=== PATIENT | male | born 1990 | race African-American/Black ===

== ENCOUNTER 2018-02-12 04:59 | Emergency (ER) | payer SELFPAY ==
[2018-02-12] MEDS ORDERED: Morphine 4 MG/ML VIAL ONE (05:59)
[2018-02-12] MEDS ORDERED: Ondansetron PF 4 MG/2 ML Vial ONE (05:59)
[2018-02-12 06:09] LABS: Hemoglobin 15.4 g/dL (14.0-18.0); Mean Corpuscular HGB CONC 33.4 g/dL (32.0-36.0); Mean Corpuscular Volume 92.7 fL (78.0-98.0); Mean Platelet Volume 8.3 fL (7.4-10.4); Platelet Count 248 thou/uL (130-400); Red Blood Cell (RBC) Count 4.98 mill/uL (4.70-6.10); White Blood Cell (WBC) Count 16.4 thou/uL (4.8-10.8)
[2018-02-12 06:26] LABS: ALT (SGPT) 20 U/L (8-55); AST (SGOT) 24 U/L (5-34); Alkaline Phosphatase 90 U/L (40-150); Anion Gap 16 mmol/L (10-20); BUN (Urea Nitrogen) 20 mg/dL (8.9-20.6); Bilirubin, Total 0.7 mg/dL (0.2-1.2); CK (CPK) 266 U/L (30-200); Calc. Creatinine Clearance 0 mL/min (70-130); Calcium 10.4 mg/dL (7.8-10.44); Carbon Dioxide 23 mmol/L (22-29); Chloride 101 mmol/L (98-107); Estimated GFR-MDRD Greater than 90; Globulin 3.8 g/dL (2.4-3.5); Glucose 107 mg/dL (70-105); Lipase 59 U/L (8-78); Magnesium 2.1 mg/dL (1.6-2.6); Potassium 3.8 mmol/L (3.5-5.1); Protein, Total 8.8 g/dL (6.0-8.3); Sodium 136 mmol/L (136-145)
[2018-02-12 06:34] LABS: Band 4 % (5-11); Lymphocytes 8 % (21-51); MDiff Complete? YES; Monocytes 4 % (0-10); Neutrophil 84 % (42-75)
[2018-02-12 06:50] LABS: Bilirubin Moderate (Negative); Blood, Urine Large (Negative); Clarity CLOUDY (Clear); Glucose, Urine (Dipstick) Negative (Negative); Leukocyte Small (Negative); Nitrite Negative (Negative); Protein, Urine (Dipstick) 300 mg/dL (Neg-Trace); Specific Gravity, Urine 1.044 (1.002-1.036); Urobilinogen 0.2 mg/dL (0.2-1.0)
[2018-02-12 06:53] LABS: Bacteria/HPF None Seen HPF (None Seen); Pathc Cast-AUWi Flag 0.64 (0-2.49); RBC/HPF GREATER THAN 50-TNTC HPF (0-3)
[2018-02-12 07:04] LABS: Renal Epithelial 0-3 HPF (0-3); Transitional Epithelial 0-3 HPF (0-3)
[2018-02-12 07:05] LABS: Hyaline Casts/LPF 0-3 HYALINE CAST LPF (0-3 Hyaline)
[2018-02-12] MEDS ORDERED: cefTRIAXone\\ROCEPHIN 250 MG VIAL ONE (07:31)
--- NOTE | 2018-02-12 08:55 | CT ---
PRELIMINARY REPORT/[facility]/EMERGENTY AFTER-HOURS PROCEDURE CT Abdomen and Pelvis Without Contrast EXAM DATE/TIME: 02/12/2018 5:57 AM CLINICAL HISTORY: 27 years old, male; Pain; Abdominal pain; Flank; Other: Non specific; Patient HX: M27 presents to ed for abdominal pain. Pt's family reports last night PT drank alcohol at their family manas and rep orts he later started getting sick. Pt's family reports abdominal pain and reports dark discolored ur ine. PT reports subjective fever. PT reports a little diarrhea a few days ago and again last night TECHNIQUE: Axial computed tomography images of the abdomen and pelvis without contrast. Coronal reformatted images were created and reviewed. COMPARISON: No relevant prior studies available. FINDINGS: Lower thorax: The lung bases are clear. ABDOMEN: Liver: Unremarkable. Gallbladder and bile ducts: No visible gallstones by CT. Ultrasound could be more sensitive for detec ting gallstones, if clinically needed. No biliary tree dilation. Pancreas: Unremarkable. Spleen: Unremarkable. Adrenals: Unremarkable. Kidneys and ureters: No hydronephrosis of either kidney. No visible renal or ureteral calculus. No pe rinephric fluid. Stomach and bowel: There are no CT findings to strongly suggest diverticulitis. Appendix: The appendix is visualized and appears normal. PELVIS: Bladder: Unremarkable as visualized. Reproductive: Unremarkable as visualized. ABDOMEN and PELVIS: Intraperitoneal space: No free air, ascites, or bowel distention. No abnormal mass or fluid collection in the pelvis. Bones/joints: No significant acute finding. Soft tissues: No significant acute finding. Vasculature: No evidence for abdominal aortic aneurysm. Lymph nodes: No retroperitoneal adenopathy. IMPRESSION: 1. Normal appendix. 2. No free air or bowel distention. 3. No hydronephrosis of either kidney. No visible renal or ureteral calculus. 4. Other findings discussed above. Thank you for allowing us to participate in the care of your patient. Dictated and Authenticated by: Nito Doll MD 02/12/2018 6:48 AM Central Time ([place] & [place]) FINAL REPORT EMERGENCY AFTER HOURS ABDOMEN AND PELVIC CT SCAN WITHOUT IV CONTRAST: Date: 02/12/18 Time: 0558 hours FINDINGS/IMPRESSION: No significant acute process in the abdomen or pelvis. No renal calculus or obstruction. No convin cing CT evidence for acute diverticulitis. Report in agreement with preliminary report given on-call by Vivienne. POS: [facility]
== END 2018-02-12 07:50 | disposition home or self-care (01) ==
LOC: ERS 04:59
DX: N41.9 Inflammatory disease of prostate, unspecified (principal)
CPT/HCPCS: 36415; 74176; 80053; 81003; 81015; 82550; 83690; 83735; 85025; 87086; 87491; 87591; 96361; 96374; 96375; J0696; J2270; J2405

== ENCOUNTER 2018-02-15 08:10 | Emergency (ER) | payer SELFPAY ==
[2018-02-15] MEDS ORDERED: Ketorolac Tromethamine 30 MG/ML VIAL ONE (08:19)
[2018-02-15] MEDS ORDERED: Ondansetron PF 4 MG/2 ML Vial ONE (08:19)
[2018-02-15] MEDS ORDERED: Lidocaine Viscous Sol 2% 15 ml UD Cup ONE (08:19)
[2018-02-15] MEDS ORDERED: Mag-Al 1200 mg/1200 mg/30 ML UDCUP ONE (08:19)
[2018-02-15] MEDS ORDERED: Pantoprazole 40 MG VIAL ONE (08:19)
[2018-02-15 08:46] LABS: #Basophils 0.1 thou/uL (0.0-0.2); #Lymphocytes 2.8 thou/uL (1.20-3.40); #Monocytes 0.8 thou/uL (0.11-0.59); #Neutrophils 6.8 thou/uL (1.40-6.50); %Basophils 0.6 % (0.0-1.0); %Eosinophils 0.4 % (0.0-10.0); %Lymphocytes 26.3 % (21.0-51.0); %Monocytes 7.8 % (0.0-10.0); %Neutrophils 64.8 % (42.0-75.0); Hemoglobin 16.1 g/dL (14.0-18.0); Mean Corpuscular HGB CONC 33.2 g/dL (32.0-36.0); Mean Corpuscular Hemoglobin 31.1 pg (27.0-31.0); Mean Corpuscular Volume 93.7 fL (78.0-98.0); Mean Platelet Volume 8.3 fL (7.4-10.4); Platelet Count 218 thou/uL (130-400); RBC Distribution Width 11.7 % (11.5-14.5); Red Blood Cell (RBC) Count 5.17 mill/uL (4.70-6.10); White Blood Cell (WBC) Count 10.5 thou/uL (4.8-10.8)
[2018-02-15 08:59] LABS: ALT (SGPT) 14 U/L (8-55); AST (SGOT) 17 U/L (5-34); Albumin 4.3 g/dL (3.5-5.0); Alkaline Phosphatase 84 U/L (40-150); Anion Gap 15 mmol/L (10-20); BUN (Urea Nitrogen) 12 mg/dL (8.9-20.6); Bilirubin, Total 1.2 mg/dL (0.2-1.2); CK (CPK) 101 U/L (30-200); Calc. Creatinine Clearance 0 mL/min (70-130); Calcium 9.3 mg/dL (7.8-10.44); Carbon Dioxide 23 mmol/L (22-29); Chloride 101 mmol/L (98-107); Estimated GFR-MDRD Greater than 90; Globulin 3.5 g/dL (2.4-3.5); Glucose 88 mg/dL (70-105); Lipase 46 U/L (8-78); Potassium 4.2 mmol/L (3.5-5.1); Protein, Total 7.8 g/dL (6.0-8.3); Sodium 135 mmol/L (136-145)
== END 2018-02-15 09:28 | disposition home or self-care (01) ==
LOC: ERS 08:10
DX: E86.0 Dehydration (principal); R11.2 Nausea with vomiting, unspecified; R10.9 Unspecified abdominal pain; F17.210 Nicotine dependence, cigarettes, uncomplicated; Z79.899 Other long term (current) drug therapy
CPT/HCPCS: 80053; 82550; 83690; 84484; 85025; 93005; 96361; 96374; 96375; C9113; J1885; J2405

== ENCOUNTER 2019-07-13 10:38 | Emergency (ER) | payer SELFPAY ==
[2019-07-13 11:11] LABS: #Basophils 0.1 thou/uL (0.0-0.2); #Monocytes 0.4 thou/uL (0.11-0.59); #Neutrophils 13.8 thou/uL (1.40-6.50); %Basophils 0.4 % (0.0-1.0); %Eosinophils 0.2 % (0.0-10.0); %Lymphocytes 12.4 % (21.0-51.0); %Monocytes 2.6 % (0.0-10.0); %Neutrophils 84.2 % (42.0-75.0); Mean Corpuscular HGB CONC 30.2 g/dL (32.0-36.0); Mean Corpuscular Hemoglobin 29.6 pg (27.0-31.0); Mean Corpuscular Volume 98.2 fL (78.0-98.0); Platelet Count 327 thou/uL (130-400); RBC Distribution Width 12.1 % (11.5-14.5); White Blood Cell (WBC) Count 16.3 thou/uL (4.8-10.8)
[2019-07-13] MEDS ORDERED: Ondansetron PF 4 MG/2 ML Vial ONE (11:13)
[2019-07-13] MEDS ORDERED: Ketorolac Tromethamine 30 MG/ML VIAL ONE (11:13)
[2019-07-13 11:46] LABS: ALT (SGPT) 12 U/L (8-55); AST (SGOT) 16 U/L (5-34); Albumin 5.1 g/dL (3.5-5.0); Alkaline Phosphatase 117 U/L (40-110); Anion Gap 16 mmol/L (10-20); BUN (Urea Nitrogen) 11 mg/dL (8.9-20.6); Bilirubin, Total 0.7 mg/dL (0.2-1.2); Calc. Creatinine Clearance 0 mL/min (70-130); Calcium 10.4 mg/dL (7.8-10.44); Carbon Dioxide 25 mmol/L (22-29); Chloride 101 mmol/L (98-107); Estimated GFR-MDRD Greater than 90; Globulin 3.9 g/dL (2.4-3.5); Glucose 93 mg/dL (70-105); Lipase 47 U/L (8-78); Potassium 3.9 mmol/L (3.5-5.1); Sodium 138 mmol/L (136-145)
--- NOTE | 2019-07-13 12:52 | CT ---
ABDOMEN AND PELVIC CT SCAN WITHOUT IV CONTRAST: HISTORY: Nausea and vomiting. Abdominal pain. COMPARISON: 10/03/2018. FINDINGS: The lung bases appear clear. The liver, gallbladder, pancreas, spleen, and region of adrenal glands are unremarkable. There is no renal calculus or acute obstruction. There is no CT evidence for a cute appendicitis. There appear to be several minimally dilated loops of air-filled small bowel in t he lower abdomen upper pelvis region, nonspecific, possibly some focal ileus or low-grade partial sma ll bowel obstruction. No evidence for free intraperitoneal fluid. IMPRESSION: Minimally dilated air-filled loops of small bowel in the lower abdomen upper pelvis, possibly mild fo tanika ileus or enteritis or low-grade partial small bowel obstruction. No renal calculus or obstruc tion. No CT evidence for acute appendicitis. No other significant acute process. POS: [facility]
== END 2019-07-13 12:13 | disposition home or self-care (01) ==
LOC: ERS 10:38
DX: K52.9 Noninfective gastroenteritis and colitis, unspecified (principal); F17.210 Nicotine dependence, cigarettes, uncomplicated
CPT/HCPCS: 74176; 80053; 83690; 85025; 96361; 96374; 96375; J1885; J2405

== ENCOUNTER 2020-04-14 21:27 | Emergency (ER) | payer SELFPAY | END 2020-04-14 22:10 | disposition home or self-care (01) | LOC: ERS 21:27 | DX: L02.01 Cutaneous abscess of face (principal); F17.210 Nicotine dependence, cigarettes, uncomplicated | CPT/HCPCS: 99282 ==

== ENCOUNTER 2020-10-10 16:15 | Emergency (ER) | payer SELFPAY | END 2020-10-10 18:05 | disposition left against medical advice (07) | LOC: ERS 16:15 | DX: F12.188 Cannabis abuse with other cannabis-induced disorder (principal); R11.2 Nausea with vomiting, unspecified | CPT/HCPCS: 99284 ==

== ENCOUNTER 2021-08-06 14:44 | Emergency (ER) | payer SELFPAY ==
[2021-08-06] MEDS ORDERED: Lidocaine 1% w/Epinephrine 1:100K 20 ML VIAL ONE (15:00)
== END 2021-08-06 15:32 | disposition home or self-care (01) ==
LOC: ERS 14:44
DX: L02.31 Cutaneous abscess of buttock (principal)
CPT/HCPCS: 10060

== ENCOUNTER 2022-05-05 13:55 | Emergency (ER) | payer SELFPAY | END 2022-05-05 15:37 | disposition home or self-care (01) | LOC: ERS 13:55 | DX: K02.9 Dental caries, unspecified (principal) | CPT/HCPCS: 99282 ==

== ENCOUNTER 2022-08-05 12:35 | Emergency (ER) | payer OTHER | END 2022-08-05 13:23 | disposition home or self-care (01) | LOC: ERS 12:35 | DX: K04.7 Periapical abscess without sinus (principal) | CPT/HCPCS: 99283 ==